=== PATIENT | male | born 1960 | race Caucasian/White ===

== ENCOUNTER 2020-06-22 01:15 | Emergency (ER) | payer BC ==
[2020-06-22] MEDS ORDERED: Sodium Chloride 0.9% 10 ML Syringe FLUSH PRN (01:32)
[2020-06-22] MEDS ORDERED: HYDROmorphone 1 MG/ML Syringe IVPUSH ONE (01:32)
[2020-06-22] MEDS ORDERED: Dexamethasone 10 MG/ML SDV IVPUSH ONE (01:32)
--- NOTE | 2020-06-22 01:37 | EDM.PDOC ---
ED HPI GENERAL MEDICAL PROBLEM - General Chief Complaint: Neck Problem Stated Complaint: [facility] AMB Time Seen by Provider: 06/22/20 01:20 Source of Information: Reports: Patient History Limitations: Reports: No Limitations - History of Present Illness INITIAL COMMENTS - FREE TEXT/NARRATIVE: 59-year-old male presents to the ED per [facility]. Patient states he works for [employer] and is currently traveling from [place]. He states about 4 hours ago he started to develop left-sided neck pain that is gradually intensified with any movement with very sharp stabbing lancinating pain that will almost drop him to the ground. He states it did make him cry for a period of time. He states the pain radiates into the upper port of the left trapezius muscle but not into the shoulder or left upper extremity. No recent axial traction to the head or neck. No known previous traumatic injuries to the cervical spine. Patient states he may have jerked his neck on the train a couple of days ago as he was riding on one of the cars and of course experiences quite a jerking sensation when the train starts to initiate movement. He has taken 400 mg of Motrin and 1 tablet of Aleve over the last 2 and half hours with no relief of the pain. Denies any other problems. Pain will come and spastic like instances every 3 to 5 minutes. Onset: Sudden Onset Date: 06/21/20 Onset Time: 21:00 Duration: Hour(s): Location: Reports: Neck (Side of neck radiating to the lower portion of the cervical spine and upper portion of the trapezius muscle left side but not into his arm or hand.) Quality: Reports: Other Severity: Severe (Pain is sharp stabbing and lancinating and spastic in nature. 10 out of 10 when it hits.) Improves with: Reports: Rest Worsens with: Reports: Movement Context: Reports: Other. 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 (Is taken 1 Aleve and two 200 mg Motrin tablets over the last 2 and half hours with no relief of the pain.) Left Neck Pain Score (Numeric/FACES): 4 - Related Data Allergies Allergy/AdvReac Type Severity Reaction Status Date / Time No Known Allergies Allergy Verified 06/22/20 01:26 Home Meds: Home Meds Cyclobenzaprine [Flexeril] 10 mg PO Q12H PRN #10 tab 06/22/20 [Rx] oxyCODONE HCl/Acetaminophen [Percocet 5-325 mg Tablet] 1 - 2 each PO Q4H PRN #16 tablet 06/22/20 [Rx] predniSONE [Prednisone] 20 mg PO BID #18 tablet 06/22/20 [Rx] Past Medical History Cardiovascular History: Reports: High Cholesterol (Not on treatment.) Social & Family History - Tobacco Use Tobacco Use Status *Q: Never Tobacco User Second Hand Smoke Exposure: No - Caffeine Use Caffeine Use: Reports: None - Recreational Drug Use Recreational Drug Use: No - Living Situation & Occupation Living situation: Reports: Occupation: Employed ED ROS GENERAL - Review of Systems Review Of Systems: See Below Constitutional: Denies: Fever, Chills, Malaise, Weakness, Fatigue HEENT: Reports: Glasses Respiratory: Reports: No Symptoms Cardiovascular: Reports: No Symptoms Endocrine: Reports: No Symptoms GI/Abdominal: Reports: No Symptoms : Reports: Frequency, Other (Nocturia x1-2.) Musculoskeletal: Reports: Neck Pain, Back Pain, Joint Pain (There is no low back pain occasional knee pain) Skin: Reports: No Symptoms (Fully having severe left-sided neck pain) Neurological: Reports: No Symptoms Psychiatric: Reports: No Symptoms Hematologic/Lymphatic: Reports: No Symptoms Immunologic: Reports: No Symptoms ED EXAM, UPPER BACK/NECK PAIN - Physical Exam Exam: See Below Exam Limited By: No Limitations General Appearance: Alert, WD/WN, Moderate Distress, Other (Patient is very apprehensive about having his neck touched or moving his head. Temperature is 36.2 with a heart rate of 76 in sinus respiratory is 18 with O2 sats of 99% room air BP 137/80.) Eye Exam: Bilateral Eye: Normal Inspection, PERRL (No scleral icterus or blepharal pallor.) Throat/Mouth Exam: Normal Inspection, Normal Lips, Normal Teeth, Normal Oropharynx, Other Head Exam: Atraumatic, Normocephalic (No trismus. Normal laryngeal crepitus.) Neck Exam: Normal Alignment, Normal Inspection, Limited Range of Motion, Painful Range of Motion, Tenderness (Patient has severe paraspinal muscle tenderness on the left side starting at the base of his skull at the insertion of the sternocleidomastoid muscle on the mastoid process as well a paraspinal is from cervical 1 to cervical 7 on the left side.). 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 DIRECTED Care 06/22/20 01:32 Active Cervical Spine wo Cont [CT] Stat Exams 06/22/20 01:33 Taken Sodium Chloride 0.9% [Saline Flush] Med 06/22/20 01:32 Active 10 ml FLUSH ASDIRECTED PRN Peripheral IV Insertion Adult [OM.PC] Stat Oth 06/22/20 01:32 Ordered Medication Orders Sodium Chloride (Saline Flush) 10 ml FLUSH ASDIRECTED PRN PRN Reason: Keep Vein Open Last Admin: 06/22/20 01:45 Dose: 10 ml Documented by: LUDY Meds: Medications Generic Name Dose Route Start Last Admin Trade Name Freq PRN Reason Stop Dose Admin Sodium Chloride 10 ml 06/22/20 01:32 12 01:45 Saline Flush FLUSH 10 ml ASDIRECTED PRN Administration Keep Vein Open Discontinued Medications Generic Name Dose Route Start Last Admin Trade Name Freq PRN Reason Stop Dose Admin Dexamethasone 10 mg 06/22/20 01:32 06/22/20 01:45 Decadron IVPUSH 06/22/20 01:33 10 mg ONETIME ONE Administration Diazepam 5 mg 06/22/20 01:33 06/22/20 02:47 Valium IVPUSH 06/22/20 01:34 5 mg ONETIME ONE Administration Diazepam 5 mg 06/22/20 02:43 06/22/20 02:51 Valium IVPUSH 06/22/20 02:44 Not Given ONETIME ONE Hydromorphone HCl 1 mg 06/22/20 01:32 06/22/20 01:47 Dilaudid IVPUSH 06/22/20 01:33 1 mg ONETIME ONE Administration - Radiology Interpretation Free Text/Narrative:: 59-year-old male presents to the ED for evaluation of acute onset of severe left-sided cervical neck pain. No known injuries. Perhaps he is head was jerked violently when the train started up a couple of days ago but did not cause any pain until over the last 4 hours. Now is been getting intermittent severe spastic shooting lancinating pain left side of his neck with certain movements and sometimes without moving at all. Spastic type pain seems to come about once every 3 to 5 minutes and is excessive severe. Nearly puts him to the ground. He states he did make him break out in tears for period of time. 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 He was brought to the hospital per [facility]. Examination reveals marked paraspinal muscle spasm and tenderness on the left side starting at the base of the skull on the left side and rating all the way down to cervical 7. Severe pain precipitated by palpation of the muscle even lately. He has no radiculopathy into his left upper extremity with retained reflexes in the biceps and triceps. Plan IV Dilaudid 1 mg IV with dexamethasone 10 mg IV. Plan will be to give him some Valium 5 mg IV depending on how he reacts to the Dilaudid. He will need to be relatively pain-free to go to the CT suite for CT of his cervical spine. - Re-Assessments/Exams Free Text/Narrative Re-Assessment/Exam: 06/22/20 02:34 she reports she is doing much better. Pain has let up a good deal. He had some pain on sliding over to the CT table. He has not yet received the Valium. CT scan of the cervical spine reveals advanced degenerative arthritic change throughout all of the vertebrae in the cervical spine particularly 3,4 and 5 and 6. There is no significant disc herniation or neuroforaminal stenosis. There is facet joint arthropathy worse probably at C3- C4 level on the left side. Therefore I suspect his current pain is secondary to spasm of the overlying paraspinal muscles and ligaments likely from a jerk or jolt on the train a couple of days ago. He will have to have his come from [facility] [employer] to pick him up and I advised him to have her come after the son comes up to make sure the right is safe. There is no need for her rating up his dis charge. His pain will hopefully start to settle better once the steroids or dexamethasone kicks in. Valium will probably make him sleep for period of time. 06/22/20 04:10 [address]Rad over read of CT cevical spine is now available. They agree with straightening sagittal alignment. The cervical vertebrae are intact without fracture or subluxation. Spondylosis and disc space narrowing are predominant from C4-C5, C5-C6 and C6-C7 levels. Small corticated ossicles posterior upper C6 vertebra appears chronic. Facet joint arthrosis predominates on the left side from C3 -C4 level. No significant canal stenosis. Moderate left C3-C4 and right C4-C5 foraminal narrowing. No prevertebral soft tissue swelling identified. Soft tissues are unremarkable. Visualized sinuses are well aerated and clear. Mastoid sinuses are clear and well aerated as well. Small bilateral cervical lymph nodes noted without any conglomeration. Patient is currently sleeping. His will be coming from [facility] to pick him up once sunrise occurs. 06/22/20 06:39 patient's is making her way from [facility] [employer] to pick him up but apparently the roads are very foggy and and she is unlikely to arrive here until about 0800 hrs. I have therefore completed his history and physical examination report and his prescriptions have been signed and his work note. Departure - Departure Time of Disposition: 06:55 Disposition: Home, Self-Care 01 Condition: Fair Clinical Impression: Degenerative arthritis of cervical spine Qualifiers: Spinal osteoarthritis complication: without myelopathy or radiculopathy Qualified Code(s): M47.812 - Spondylosis without myelopathy or radiculopathy, cervical region - Discharge Information *PRESCRIPTION DRUG MONITORING PROGRAM REVIEWED*: Not Applicable *COPY OF PRESCRIPTION DRUG MONITORING REPORT IN PATIENT CECILY: Not Applicable Prescriptions: Cyclobenzaprine [Flexeril] 10 mg PO Q12H PRN #10 tab PRN Reason: Relief of muscle spasm oxyCODONE HCl/Acetaminophen [Percocet 5-325 mg Tablet] 1 - 2 each PO Q4H PRN #16 tablet PRN Reason: pain relief. predniSONE [Prednisone] 20 mg PO BID #18 tablet Referrals: PCP,Not In Area [Primary Care Provider] - Forms: ED Department Discharge, ED Return to Work/School Form Additional Instructions: Evaluation in the emergency room this morning in regards to development of severe left-sided neck pain while at work last evening. No specific injury is occurred although you reported ED jerking sensation to your head and neck a few days ago while working [place] the train. This likely was the culprit in causing microtears in the surrounding ligaments and muscles of the left side of the neck. At the time of examination you were in exquisite pain coming from the left-sided paraspinal muscle spasm starting at the base of your skull and traveling all the way down the cervical spine to C7 vertebra. You were treated therefore with intravenous pain medication Dilaudid 1 mg and dexamethasone 10 mg IV to relieve inflammation. Later you received 5 mg of Valium IV to alleviate muscle spasm and allow rest. CT scan of the cervical spine was carried out and reveals degenerative arthritic changes as well as mild degenerative disc disease throughout the cervical spine slightly worse on the left side as compared to the right. A copy of the report is included with your discharge. Suggest treatment at home to be Flexeril 10 mg 1 every 12 hours as necessary for relief of severe muscle spasm. Of note this medication can cause sedation. Cautious use of Percocet tabs 5/325 mg 1 or 2 every 4-6 hours necessary for severe pain relief. Of note these like to cause constipation and sedation and you should not operate a motor vehicle if you are taking either of the above medications. Suggest continuing Aleve 2 tablets every 8 hours for the next 4 to 5 days until the pain is at least 80% improved. Take prednisone 20 mg twice daily with breakfast and supper for 6 days and then once in the morning only for another 6 days to further alleviate pain and inflammation in the neck. You will need at least a week off of work. It would likely take around 10 days for the neck to return to normal. It would be okay to seek out physical therapy and/or massage therapist but I would not advise chiropractic manipulation at this time cervical traction can sometimes help alleviate this type of pain. Usually you will get marked improvement with medication over the next 48 to 72 hours Sepsis Event Note (ED) - Evaluation Sepsis Screening Result: No Definite Risk - Focused Exam Vital Signs: Vital Signs Temp Pulse Resp BP Pulse Ox 06/22/20 01:21 36.2 C 76 18 137/80 99 - My Orders Last 24 Hours: My Active Orders 06/22/20 01:32 Peripheral IV Care [RC] . DIRECTED Sodium Chloride 0.9% [Saline Flush] 10 ml FLUSH ASDIRECTED PRN Peripheral IV Insertion Adult [OM.PC] Stat 06/22/20 01:33 Cervical Spine wo Cont [CT] Stat - Assessment/Plan Last 24 Hours: My Active Orders 06/22/20 01:32 Peripheral IV Care [RC] . DIRECTED Sodium Chloride 0.9% [Saline Flush] 10 ml FLUSH ASDIRECTED PRN Peripheral IV Insertion Adult [OM.PC] Stat 06/22/20 01:33 Cervical Spine wo Cont [CT] Stat
--- NOTE | 2020-06-22 10:30 | CT ---
CT cervical spine Technique: Multiple axial sections through the cervical spine were obtained. Reconstructed coronal and sagittal images were obtained. Study was obtained from both C1 inferiorly to the top of T3. Reconstructed coronal and sagittal images were obtained. Findings: Fairly severe disc space narrowing is noted at C4-5, C5-6 and C6-7. Anterior osteophytes seen at these levels. Mild degenerative change noted between the dens and anterior arch of C1. Mild scattered degenerative apophyseal change is seen. Moderate left-sided neural foraminal stenosis noted at C3-4. Mild right-sided neural foraminal stenosis is noted at C4-5. Moderate left-sided neural foraminal stenosis is noted at C5-6. Mild right-sided neural foraminal stenosis is noted at C6-7. Other neural foramina are patent. No bony central canal stenosis is seen. No fracture is appreciated. Cervical spine is slightly straightened most likely relating to positioning. No acute abnormal subluxation is seen. Impression: 1. Degenerative change as noted above. 2. No acute fracture or subluxation is seen Diagnostic code #2 I agree with preliminary report from 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
== END 2020-06-22 06:55 | disposition home or self-care (01) ==
LOC: JD.ED 01:15
DX: M47.812 Spondylosis without myelopathy or radiculopathy, cervical region (principal)
CPT/HCPCS: 72125; 96374; 96375; 99284; J1100; J1170; J3360